=== PATIENT | male | born 1940 | race Caucasian/White ===

== ENCOUNTER 2017-09-23 12:07 | Emergency (ER) | payer MEDICARE, OTHER ==
[2017-09-23 13:37] LABS: Basophils % (A) 1 %; Eosinophils # (A) 0.1 k/uL (0-0.7); Eosinophils % (A) 1 %; HCT 44.8 % (39.0-53.0); HGB 15.3 gm/dL (13.0-17.5); Lymphocytes # (A) 0.9 k/uL (1.0-4.8); Lymphocytes % (A) 10 %; MCH 31.5 pg (25.0-35.0); MCHC 34.3 g/dL (31.0-37.0); MCV 91.9 fL (80.0-100.0); Monocytes # (A) 0.6 k/uL (0-1.0); Monocytes % (A) 7 %; Neutrophils # (A) 6.8 k/uL (1.3-7.7); Neutrophils % (A) 81 %; Platelet Count 182 k/uL (150-450); RBC 4.87 m/uL (4.30-5.90); RDW 12.3 % (11.5-15.5); WBC 8.4 k/uL (3.8-10.6)
[2017-09-23 13:41] LABS: INR 1.1 (<1.2); Partial Thromboplastin Time 23.2 sec (22.0-30.0); Prothrombin Time 10.6 sec (9.0-12.0)
[2017-09-23 13:46] LABS: ALT 63 U/L (21-72); AST 73 U/L (17-59); Albumin 4.4 g/dL (3.5-5.0); Alkaline Phosphatase 86 U/L (38-126); Anion Gap 7 mmol/L; Blood Urea Nitrogen 17 mg/dL (9-20); Calcium 9.8 mg/dL (8.4-10.2); Carbon Dioxide 29 mmol/L (22-30); Chloride 105 mmol/L (98-107); Glucose 99 mg/dL (74-99); Potassium 4.3 mmol/L (3.5-5.1); Sodium 141 mmol/L (137-145); Total Bilirubin 1.9 mg/dL (0.2-1.3); Total Protein 7.2 g/dL (6.3-8.2)
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
[2017-09-23 14:08] LABS: Troponin I 0.018 ng/mL (0.000-0.034)
[2017-09-23 14:10] LABS: Creatine Kinase MB 4.6 ng/mL (0.0-2.4)
[2017-09-23 14:53] VITALS: BP 164/96; PULSE 86; RESP 18
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
[2017-09-23 15:39] VITALS: TEMP 98.7
== END 2017-09-23 15:39 | disposition home or self-care (01) ==
LOC: EC 12:07
DX: S20.212A Contusion of left front wall of thorax, initial encounter (principal); S50.812A Abrasion of left forearm, initial encounter; I71.9 Aortic aneurysm of unspecified site, without rupture; N28.89 Other specified disorders of kidney and ureter; Z79.1 Long term (current) use of non-steroidal anti-inflammatories (NSAID); Z79.899 Other long term (current) drug therapy; V89.2XXA Person injured in unspecified motor-vehicle accident, traffic, initial encounter; W22.11XA Striking against or struck by driver side automobile airbag, initial encounter; Y92.410 Unspecified street and highway as the place of occurrence of the external cause
CPT/HCPCS: 99284; 36415; 80053; 82550; 82553; 83735; 84484; 85025; 85610; 85730; 70491; 71260; 74177; Q9967

== ENCOUNTER → 2019-02-11 | Outpatient (CLI) | payer MEDICARE ==
--- NOTE | 2019-02-11 15:35 | NM ---
EXAMINATION TYPE: NM bone scan whole body DATE OF EXAM: 02/11/2019 COMPARISON: CT scan dated 02/11/2019 HISTORY: Prostate cancer Delayed whole-body scanning was performed following the injection of 25.9 mCi Tc 99m MDP. Images acq uired 3.5 hours post injection. FINDINGS: Soft tissue uptake is within normal limits. Uptake within the feet, ankles, knees, hands, elbows, anish ulders, sternoclavicular joints and spine is likely degenerative. No areas of abnormal increased or d ecreased uptake to suggest metastatic disease. There is a spinal curvature. IMPRESSION: Metastatic disease is not evident.
--- NOTE | 2019-02-11 17:56 | CT ---
EXAMINATION TYPE: CT abdomen pelvis w con DATE OF EXAM: 02/11/2019 COMPARISON: 09/23/2017 INDICATION: Follow up for prostate cancer. DLP: 1038.2 mGycm, Automated exposure control for dose reduction was used. CONTRAST: 100ml mL of Isovue 300. Study performed with Oral Contrast TECHNIQUE: Axial images were obtained from above the diaphragm to the pubic rami in the axial plane a t 5 mm thick sections. Reconstructed images are reviewed on the computer in the coronal plane. FINDINGS: Limited CT sections are obtained the lung bases. The lung bases are clear. CT ABDOMEN: Liver: Normal Spleen: Normal Pancreas: Head and body the pancreas may be somewhat atrophic. Tail of pancreas appears normal. Adrenal glands: The adrenal glands are normal. Gallbladder: Normal Kidneys: No masses are evident. No hydronephrosis is present. Multiple cysts are present throughout by the bilateral kidneys. Delayed images were obtained through the kidneys. The inferior posterior left renal cyst measuring 4.5 cm and 18 Hounsfield units has peripheral rim calcification. Small lisa cified cyst may be present on the right renal cortex. Aorta: Vascular calcification is within the aorta. Inferior vena cava: Normal. CT PELVIS: Loops of bowel within the abdomen and pelvis are normal. Multiple diverticuli are present through out the sigmoid colon. No suspicious diverticulitis is evident. Appendix: Normal as visualized. Urinary bladder: Normal. Genitourinary structures: Prostate is prominent contains calcification. Transverse diameter of 5.5 cm a similar to prior study. Osseous structures: No suspicious lytic or sclerotic lesions. IMPRESSIONS: 1. Multiple bilateral renal cysts. 2. An inferior pole left renal cyst contains calcification in the periphery but appears stable from c omparison. Couple of additional small calcified cysts may be within the right kidney cortex. 3. Diverticulosis without acute diverticulitis. 4. Prostate hypertrophy
== END | disposition home or self-care (01) ==
LOC: RADNMMAIN 10:27
PROVIDERS: ATTEND Urology
DX: N28.1 Cyst of kidney, acquired (principal); N40.0 Benign prostatic hyperplasia without lower urinary tract symptoms; K57.90 Diverticulosis of intestine, part unspecified, without perforation or abscess without bleeding; C61 Malignant neoplasm of prostate; N28.89 Other specified disorders of kidney and ureter
CPT/HCPCS: 82565; 84520; 74177; 36415; 78306; A9503; Q9967

== ENCOUNTER → 2019-04-22 | Outpatient (CLI) | payer MEDICARE ==
--- NOTE | 2019-04-22 13:48 | US ---
EXAMINATION TYPE: US abdomen complete DATE OF EXAM: 04/22/2019 COMPARISON: US 08/23/10, CT 02/11/19 CLINICAL HISTORY: I71.4 AAA. Patient states AAA on previous study. States no abdominal surgery excep t feeding tube years ago. EXAM MEASUREMENTS: Liver Length: 16.9 cm Gallbladder Wall: Not seen cm CBD: 0.5 cm Spleen: 10.8 cm Right Kidney: 12.9 x 6.4 x 5.9 cm Left Kidney: 14.9 x 7.1 x 6.1 cm Pancreas: Obscured by bowel gas Liver: Partially Obscured by overlying bowel gas and the echotexture is coarse consistent with hepa tic steatosis. Gallbladder: Not well seen. Patient states NPO, ? contracted. Evidence for sonographic Esteves's sign: No CBD: wnl Spleen: wnl Right Kidney: Multiple cysts Largest 2 measured: Lateral = 5.3 x 5.1 x 5.0 cm Lower = 5.5 x 5.3 x 4.6 cm Left Kidney: Multiple cysts Largest 2 measured: Medial = 7.3 x 7.0 x 6.8 cm Lower = 4.6 x 4.4 x 4.3 cm with internal echoes Upper IVC: Obscured by overlying bowel gas Abd Aorta: Proximal portion partially Obscured by overlying bowel gas. No AAA seen. A scale and color Doppler imaging performed of the aorta. These cysts associated with the kidney are not all simple cystic. Cortical medullary differentiation is maintained. IMPRESSION: Hepatic steatosis. Some of the cortical cysts are simple cystic within the kidneys. There is no evident abdominal aortic aneurysm.
== END | disposition home or self-care (01) ==
LOC: RADUSWWP 06:47
PROVIDERS: ATTEND Family Medicine
DX: K76.0 Fatty (change of) liver, not elsewhere classified (principal); N28.1 Cyst of kidney, acquired
CPT/HCPCS: 76700